=== PATIENT | female | born 1975 | race American Indian/Alaskan Native ===

== ENCOUNTER 2019-06-16 20:38 | Emergency (ER) | payer BC ==
--- NOTE | 2019-06-16 21:03 | Event Note ---
ED Screening Note Date of service: 06/09/19 Time: 20:58 ED Screening Note: This is a 43 y.o. F. that presents to the ER with n/v Reports gastric sleeve surgery [address] Smart was bariatric surgeon. Diagnosed with gastroparesis and abdominal hematoma by [facility]. [facility] bariatrics advised here to come to [facility]. This initial assessment/diagnostic orders/clinical plan/treatment(s) is/are subject to change based on patients health status, clinical progression and re- assessment by fellow clinical providers in the ED. Further treatment and workup at subsequent clinical providers discretion. Patient/guardian urged not to elope from the ED as their condition may be serious if not clinically assessed and managed. Initial orders include: Labs
[2019-06-16] MEDS ORDERED: ZOFRAN ODT PO ONE (21:04)
[2019-06-16] MEDS ORDERED: ZOFRAN ODT ONE (21:06)
[2019-06-16] MEDS ORDERED: ZOFRAN IV ONE (21:15)
[2019-06-16] MEDS ORDERED: NACL 0.9% 1000 ML 1,000 ML IV ONE (21:15)
[2019-06-16] MEDS ORDERED: MORPHINE IV ONE (21:15)
[2019-06-16 21:20] LABS: Hematocrit 32.7 % (30.3-42.9); Hemoglobin 10.2 gm/dl (10.1-14.3); Mean Corpuscular HGB Conc 31 % (30-34); Mean Corpuscular Volume 82 fl (79-97); Platelet Count 311 K/mm3 (140-440); Red Blood Count 4.01 M/mm3 (3.65-5.03); Red Cell Distribution Width 16.9 % (13.2-15.2)
--- NOTE | 2019-06-16 21:20 | Emergency Department Report ---
ED Abdominal Pain HPI - General Chief Complaint: Abdominal Pain Stated Complaint: ABD PAIN/EMESIS Time Seen by Provider: 06/16/19 20:58 Source: patient Mode of arrival: Ambulatory Limitations: No Limitations - History of Present Illness Initial Comments: Patient is a 43 years old female, obese, status post gastric sleeve surgery [address] Smart. Patient presented to the ER complaining of nausea vomiting and diffuse abdominal pain with throat pain. Patient stated that symptoms started 5 days ago. Patient went to another ER and had a CT abdomen and pelvis done and was told to follow-up with her bariatric surgeon Doctor. Patient denied any fever or chills. MD Complaint: abdominal pain -: days(s) (5) Location: diffuse Radiation: none Migration to: no migration Severity: moderate Quality: cramping - Related Data Allergies Allergy/AdvReac Type Severity Reaction Status Date / Time No Known Allergies Allergy Unverified 06/16/19 20:42 ED Review of Systems ROS: Stated complaint: ABD PAIN/EMESIS Other details as noted in HPI Comment: All other systems reviewed and negative Constitutional: denies: chills, fever Respiratory: denies: cough, orthopnea, shortness of breath, SOB with exertion Cardiovascular: denies: chest pain, palpitations Gastrointestinal: abdominal pain, nausea, vomiting. denies: diarrhea, constipation, hematemesis, hematochezia Genitourinary: denies: dysuria Musculoskeletal: denies: back pain Neurological: denies: headache, weakness ED Past Medical Hx - Past Medical History Previous Medical History?: Yes Additional medical history: Gastritis, Obesity - Surgical History Past Surgical History?: Yes Additional Surgical History: barriatric sleeve 05/17/19 - Social History Smoking Status: Never Smoker Substance Use Type: None ED Physical Exam - General Limitations: No Limitations General appearance: alert, in no apparent distress - Head Head exam: Present: atraumatic, normocephalic, normal inspection - Eye Eye exam: Present: normal appearance - ENT ENT exam: Present: mucous membranes dry - Neck Neck exam: Present: normal inspection, full ROM. Absent: tenderness, meningismus - Respiratory Respiratory exam: Present: normal lung sounds bilaterally - Cardiovascular Cardiovascular Exam: Present: regular rate, normal rhythm, normal heart sounds - GI/Abdominal GI/Abdominal exam: Present: soft, normal bowel sounds. Absent: distended, tenderness, guarding, rebound, rigid, organomegaly, mass, bruit, pulsatile mass, hernia - Extremities Exam Extremities exam: Present: normal inspection, full ROM, normal capillary refill - Back Exam Back exam: Present: normal inspection, full ROM. Absent: tenderness, CVA tenderness (R), CVA tenderness (L), muscle spasm, paraspinal tenderness, vertebral tenderness - Neurological Exam Neurological exam: Present: alert, oriented X3, CN II-XII intact, normal gait, reflexes normal - Psychiatric Psychiatric exam: Present: normal mood - Skin Skin exam: Present: warm, intact, normal color ED Course Vital Signs 06/16/19 06/16/19 06/16/19 20:46 21:25 21:29 Temperature 98.7 F 98.3 F Pulse Rate 87 79 Respiratory 16 19 19 Rate Blood Pressure 135/86 Blood Pressure 127/70 [Left] O2 Sat by Pulse 97 99 Oximetry 06/16/19 06/16/19 06/17/19 21:59 23:00 00:30 Temperature Pulse Rate 87 72 Respiratory 16 14 14 Rate Blood Pressure Blood Pressure 115/72 112/64 [Left] O2 Sat by Pulse 98 100 Oximetry ED Medical Decision Making - Lab Data Result diagrams: 06/16/19 21:10 06/16/19 21:10 - Radiology Data Radiology results: report reviewed - Medical Decision Making Patient is a 43 years old female, obese, status post gastric sleeve surgery [address] Smart. Patient presented to the ER complaining of nausea vomiting and diffuse abdominal pain with throat pain. Patient stated that symptoms started 5 days ago. Patient went to another ER and had a CT abdomen and pelvis done and was told to follow-up with her bariatric surgeon Doctor. Patient denied any fever or chills. Patient received morphine and Zofran and normal saline. CT abdomen and pelvis with IV contrast done at [facility] on 06/15/2019 should read time 2.6 cm fluid collection adjacent to the GE junction with a larger perigastric fluid collection along the greater curvature of the stomach measuring 7.9cm x 6.5 cm. Mild mesenteric stranding is noted. The appendix appears normal. I discussed the patient with Dr. Smart physician service assistant MINH LOPEZ. She advised to do a by mouth contrast CT scan of the abdomen and if there is no leakage patient can be discharged home with antibiotic and to follow-up with his Dr. Smart on Wednesday. Critical care attestation.: If time is entered above; I have spent that time in minutes in the direct care of this critically ill patient, excluding procedure time. ED Disposition Clinical Impression: Abdominal pain Disposition: TO HOME OR SELFCARE Is pt being admited?: No Condition: Stable Instructions: Abdominal Pain (ED) Referrals: HOLLY RAM [Other] - 3-5 Days ILA SMART MD [Staff Physician] - 3-5 Days
[2019-06-16 21:24] LABS: Basophils % (Auto) 0.8 % (0.0-1.8); Eosinophils # (Auto) 0.1 K/mm3 (0.0-0.4); Eosinophils % (Auto) 2.7 % (0.0-4.3); Lymphocytes # (Auto) 1.8 K/mm3 (1.2-5.4); Lymphocytes % (Auto) 36.3 % (13.4-35.0); Monocytes # (Auto) 0.3 K/mm3 (0.0-0.8); Monocytes % (Auto) 6.7 % (0.0-7.3)
[2019-06-16 21:33] LABS: Alanine Aminotransferase 17 units/L (7-56); Albumin 3.8 g/dL (3.9-5); BUN/Creatinine Ratio 9; Blood Urea Nitrogen 7 mg/dL (7-17); Calcium 9.1 mg/dL (8.4-10.2); Hemolysis Index 3
[2019-06-17 00:11] LABS: Bilirubin,Urine NEG (Negative); Blood,Urine NEG (Negative); Color,Urine Amber (Yellow); Hyaline Casts,Urine 2 /LPF; Mucus,Urine 3+ /HPF
[2019-06-17 00:12] LABS: HCG Qualitative,Urine Negative (Negative)
[2019-06-17] MEDS ORDERED: SUBLIMAZE IV ONE (01:52)
--- NOTE | 2019-06-17 01:57 | Cat Scan Report ---
CT abdomen pelvis wo con INDICATION / CLINICAL INFORMATION: abdominal pain, patient had a gastric sleeve performed of months ago and has vomiting and diarrhea si nce. TECHNIQUE: All CT scans at this location are performed using CT dose reduction for ALARA by means of automated e xposure control. COMPARISON: None available. FINDINGS: No prior exams. Postsurgical changes seen in the upper abdomen. Soft tissue density adjacent to the s tomach represents a large fluid collection. This does not contain oral contrast. Diffuse fatty infilt ration is present in the liver without focal abnormality. The spleen, kidneys, pancreas, adrenal glan ds and great vessels are normal. In the pelvis, no free fluid is seen. No enlarged lymph nodes are identified. The bladder is minimall y distended. No significant skeletal abnormality is seen. IMPRESSION: 1. Postsurgical change in the upper abdomen. Large soft tissue density adjacent to the stomach probab ly represents a fluid collection 2. Diffuse fatty infiltration in the liver without focal abnormality Signer Name: Monty Linares MD FACR Signed: 06/17/2019 1:52 AM Workstation Name: [id number]
[2019-06-17] MEDS ORDERED: SUBLIMAZE ONE (01:58)
[2019-06-17 03:29] VITALS: BP 115/64
== END 2019-06-17 03:00 | disposition home or self-care (01) ==
LOC: ED 20:38
DX: R10.84 Generalized abdominal pain (principal); R11.2 Nausea with vomiting, unspecified; R07.0 Pain in throat; Z98.84 Bariatric surgery status
CPT/HCPCS: 36415; 74176; 80053; 81001; 81025; 83690; 85025; 96361; 96374; 96375; 99284; J2270; J2405; J3010; J7030; Q0162

== ENCOUNTER 2019-06-22 02:11 | Emergency (ER) | payer BC ==
--- NOTE | 2019-06-22 05:21 | Emergency Department Report ---
ED Abdominal Pain HPI - General Chief Complaint: Nausea/Vomiting/Diarrhea Stated Complaint: VOMITING,STOMACH PAIN UNABLE TO EAT/CONSTIPATION Time Seen by Provider: 06/22/19 03:07 Source: patient Mode of arrival: Ambulatory Limitations: No Limitations - History of Present Illness Complaint: abdominal pain -: Gradual (chronic pain followed by Dr. Smart surgery. Reports underwent a procedure for gastric sleeve approximately 1 month ago. Reports she was evaluated in the ER for same symptoms approxiamtely 2 weeks ago where there was concern for a fluid collection. Reports she has seen Dr. Smart in the office since her ER visit and there is a plan to drain the fluid. ) Location: diffuse Radiation: none Migration to: no migration Severity: mild Severity scale (0 -10): 2 Quality: cramping Consistency: intermittent Improves With: nothing Worsens With: vomiting Associated Symptoms: nausea, vomiting, diarrhea. denies: fever, chills, constipation, dysuria, hematemesis, hematochezia, melena, hematuria, anorexia, syncope - Related Data Previous Rx's Medication Instructions Recorded Last Taken Type Ciprofloxacin [Ciprofloxacin ORAL 500 mg PO Q12H 7 Days ml 06/17/19 Unknown Rx LIQ] HYDROcodone/ACETAMINOPHEN [Lortab 15 ml PO TID PRN #90 ml 06/17/19 Unknown Rx 10 mg-300 mg per 15 ML ORAL LIQ] Ondansetron [Zofran Oral Liq] 4 mg PO TID PRN #60 ml 06/17/19 Unknown Rx Allergies Allergy/AdvReac Type Severity Reaction Status Date / Time No Known Allergies Allergy Unverified 06/16/19 20:42 ED Review of Systems ROS: Stated complaint: VOMITING,STOMACH PAIN UNABLE TO EAT/CONSTIPATION Other details as noted in HPI Other: GENERAL: No weight change, fatigue, weakness, fever, chills, or night sweats SKIN: No changes in skin or hair, no itching, no rashes, no jaundice HEAD: No trauma, headache, or visual changes EYES: No blurriness, tearing, itching, acute visual loss, conjunctival discolor ation, or scleral icterus EARS: No hearing loss, tinnitus, vertigo, or earache NOSE: No rhinorrhea, stuffiness, sneezing, itching, or epistaxis MOUTH: No bleeding gums, hoarseness, sore throat, or swelling CARDIAC: No new murmur, chest pain, palpitations, dyspnea on exertion, orthopnea, PND, or edema RESPIRATORY: No shortness of breath, wheeze, cough, sputum production, hemoptysis, pneumonia, asthma, bronchitis, or emphysema GI: Abdominal pain, n/v/d. No dysphagia, constipation, bleeding, hematemesis, melena, hematochezia URINARY: No frequency, urgency, polyuria, dysuria, hematuria, or incontinence MUSCULOSKELETAL: No muscle weakness, joint stiffness, decrease in range of motion, redness, swelling NEUROLOGIC: No loss of sensation, numbness, tingling, tremors, weakness, paralysis, seizures HEMATOLOGIC: No anemia, easy bruising, bleeding, petechiae, or purpura ENDOCRINE: No hot or cold intolerance, sweating, polyuria, polydipsia or, polyphagia no thyroid problems PSYCHIATRIC: No change in mood, no anxiety, no depression ED Past Medical Hx - Past Medical History Previous Medical History?: Yes Additional medical history: Gastritis, Obesity - Surgical History Past Surgical History?: Yes Additional Surgical History: barriatric sleeve 05/17/19 - Social History Smoking Status: Never Smoker Substance Use Type: None - Medications Home Medications: Home Medications Medication Instructions Recorded Confirmed Last Taken Type Ciprofloxacin [Ciprofloxacin ORAL 500 mg PO Q12H 7 Days ml 06/17/19 Unknown Rx LIQ] HYDROcodone/ACETAMINOPHEN [Lortab 15 ml PO TID PRN #90 ml 06/17/19 Unknown Rx 10 mg-300 mg per 15 ML ORAL LIQ] Ondansetron [Zofran Oral Liq] 4 mg PO TID PRN #60 ml 06/17/19 Unknown Rx ED Physical Exam - General Limitations: No Limitations - Other Other exam information: GENERAL: Patient in no acute distress HEAD: Normocephalic, atraumatic EYES: PERRLA, EOM intact, no scleral icterus, no papilledema, no conjunctival hemorrhage, visual garcia and acuity wnl, NOSE: No tenderness, discharge, sinus tenderness MOUTH: No erythema, bleeding, exudate HEART: Regular rate and rhythm, no murmur, S1-S2 are auscultated, pulses are symmetric LUNGS: No wheezing, rales, rhonchi, bilateral breath sounds ABDOMEN: Normal bowel sounds, no tenderness, no rebound, no guarding, no masses, no CVA tenderness MUSCULOSKELETAL: Normal joint range of motion, no redness, no swelling, no tenderness NEUROLOGIC: GCS 15, Alert and Oriented x3, Cranial nerves intact, normal sensation, normal strength, no cerebellar deficit SKIN: Skin is warm and dry, no wounds, no rashes ED Course Vital Signs 06/22/19 06/22/19 02:38 03:05 Temperature 98.7 F Pulse Rate 77 77 Respiratory 14 17 Rate Blood Pressure 141/88 Blood Pressure 148/89 [Right] O2 Sat by Pulse 100 98 Oximetry ED Medical Decision Making - Medical Decision Making At 0540 patient comfortable. Jessica PA call back for Dr. Smart updated with benign exam. Jessica reports patient is being scheduled for IR drainage and evaluation fluid collection. Reports patient with no active vomiting and benign exam in the ER ok for discharge with outpatient follow up. Patient updated. Return if any worsening. Critical care attestation.: If time is entered above; I have spent that time in minutes in the direct care of this critically ill patient, excluding procedure time. ED Disposition Clinical Impression: Abdominal pain Qualifiers: Abdominal location: unspecified location Qualified Code(s): R10.9 - Unspecified abdominal pain Disposition: TO HOME OR SELFCARE Is pt being admited?: No Condition: Stable Instructions: Abdominal Pain (ED) Referrals: HOLLY FIGUEROA MD [Primary Care Provider] - 2-3 Days ILA SMART MD [Staff Physician] - 2-3 Days Time of Disposition: 05:43
[2019-06-22 05:53] VITALS: BP 136/81
== END 2019-06-22 05:55 | disposition home or self-care (01) ==
LOC: ED 02:11
DX: R10.84 Generalized abdominal pain (principal); R11.2 Nausea with vomiting, unspecified; R19.7 Diarrhea, unspecified; Z79.899 Other long term (current) drug therapy
CPT/HCPCS: 99282

== ENCOUNTER 2019-06-23 08:42 | Day surgery (SDC) | payer BC ==
[2019-06-23] MEDS ORDERED: NACL 0.9% 500 ML 500 ML IV SCH (10:00)
[2019-06-23 10:01] LABS: Hematocrit 35.9 % (30.3-42.9); Hemoglobin 11.3 gm/dl (10.1-14.3); Mean Corpuscular HGB Conc 31 % (30-34); Mean Corpuscular Volume 81 fl (79-97); Platelet Count 292 K/mm3 (140-440); Red Blood Count 4.41 M/mm3 (3.65-5.03); Red Cell Distribution Width 17.6 % (13.2-15.2)
[2019-06-23 10:09] LABS: BUN/Creatinine Ratio 14; Blood Urea Nitrogen 11 mg/dL (7-17); Calcium 9.9 mg/dL (8.4-10.2); Hemolysis Index 30; INR 1.12 (0.87-1.13)
[2019-06-23] MEDS ORDERED: ZOFRAN ONE (11:27)
[2019-06-23] MEDS ORDERED: DILAUDID ONE (11:28)
[2019-06-23] MEDS ORDERED: DILAUDID IV ONE (13:07)
[2019-06-23] MEDS ORDERED: ZOFRAN IV ONE (13:07)
--- NOTE | 2019-06-23 13:50 | Cat Scan Report ---
CT DRAIN CYST/ABSCESS HISTORY: Abdominal fluid collection after gastric sleeve surgery. Abdominal pain. Nausea and vomiting . DESCRIPTION OF PROCEDURE: Informed consent was obtained. Sterile technique was utilized. 1% lidocaine for skin anesthesia. Anxiolysis was accomplished with 1 mg of Dilaudid and 2 mg of Zofran intravenou sly. Intraobserver time of 15 minutes. Independent cardiorespiratory monitoring by RN. The patient wa s sedated for 15 minutes. Initial scan of the abdomen demonstrates a slightly dense fluid collection in the lesser sac measurin g up to 6.4 x 7.0 cm in axial plane. This is adjacent to the gastric sleeve surgical changes. This co llection appears slightly decreased in size since the previous exam. Using CT guidance, a 15-gauge trocar needle was advanced to the dependent portions of this collection . Approximately 30-40 cc of sterile appearing blood products were aspirated. This has the appearance of partially liquefied hematoma. Most of the collection was still thrombosed. Samples were sent to e lab for culture. It was decided not to leave a drain given the sterile appearance of the collection . The patient was in agreement. The patient tolerated the procedure without complaint and left radiology in stable condition. IMPRESSION: Successful CT-guided aspiration of the fluid collection in the abdomen. Findings are consistent with a sterile subacute hematoma. Signer Name: Ravi Olmstead Jr, MD Signed: 06/23/2019 1:46 PM Workstation Name: [id number]
[2019-06-23 15:50] VITALS: BP 150/93
== END 2019-06-23 08:43 | disposition home or self-care (01) ==
LOC: CATHLABREC 08:42
PROVIDERS: ATTEND Specialist
DX: R10.9 Unspecified abdominal pain (principal); R11.2 Nausea with vomiting, unspecified; G47.30 Sleep apnea, unspecified; Z98.890 Other specified postprocedural states; Z79.899 Other long term (current) drug therapy
CPT/HCPCS: 10160; 36415; 77012; 80048; 85027; 85610; 85730; 87116; 96374; 96375; J1170; J2405; J7040